=== PATIENT | female | born 1990 | race Caucasian/White ===

== ENCOUNTER 2019-07-14 16:50 | Outpatient (CLI) | payer OTHER ==
[~2019-07-14] VITALS: Ht 160 cm; Wt 61.8 kg
[~2019-07-14 16:50] MED LIST: PNV11TAB PO
[2019-07-14] MEDS: LACTATED RINGER'S 1,000 ML IV SCH ×2 (17:19→20:47)
[2019-07-14 17:26] VITALS: BP 114/71; PULSE 65; RESP 18; Ht 160 cm; Wt 61.8 kg
== END 2019-07-14 22:57 | disposition home or self-care (01) ==
LOC: OBT 16:50 → L-D 16:51 → OBT 22:57
PROVIDERS: ATTEND Obstetrics & Gynecology
DX: O26.93 Pregnancy related conditions, unspecified, third trimester (principal); Z3A.36 36 weeks gestation of pregnancy
CPT/HCPCS: 76815; J7120; Z7500; G0463